=== PATIENT | female | born 1975 | race Caucasian/White ===

== ENCOUNTER 2024-11-15 07:56 | Outpatient (CLI) | payer OTHER, SELFPAY ==
--- NOTE | ~2024-11-15 | MR_ITS ---
EXAMINATION: MR knee RT wo con DATE: 11/15/2024 08:33 INDICATION: Patellofemoral arthritis TECHNIQUE: Magnetic resonance imaging (MRI) of the right knee was performed without intravenous contr ast. Sequences included coronal PD-weighted FSE, coronal PD-weighted FS FSE, sagittal T2-weighted FS E, sagittal PD-weighted FS FSE and axial PD weighted fat saturated FSE. COMPARISON: None. FINDINGS: Medial compartment: Medial meniscus is normal. Articular cartilage is normal. Lateral compartment: Lateral meniscus is normal. Articular cartilage is normal. Patellofemoral compartment: There is deep chondral fissuring with underlying subarticular edema-like and cystlike changes at the lateral patellar facet. Cartilage at the medial patellar facet and at the trochlea appears normal. Ligaments and tendons: Anterior and posterior cruciate ligaments are normal. The medial collateral ligament and fibular nathaniel ateral ligament complex are normal. The extensor mechanism is normal. The visualized medial and later al hamstring tendons as well as the iliotibial band are normal. Fluid: Physiologic amount of fluid in the joint space. No loose osteochondral bodies identified. Osseous/other: Marrow signal is normal with no fracture or pathologic marrow replacing process. No fracture or patho logic marrow replacing process. IMPRESSION: 1. 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 Otherwise unremarkable right knee MRI. Reviewed, dictated and finalized at location A. [employer]ING PL[employer]NER IMPRESSION: 1. 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 Otherwise unrema rkable right knee MRI.
--- NOTE | ~2024-11-15 | MR_ITS ---
EXAMINATION: MR knee LT wo con DATE: 11/15/2024 08:47 INDICATION: Patellofemoral arthritis of the left knee TECHNIQUE: Magnetic resonance imaging (MRI) of the left knee was performed without intravenous contra st. Sequences included coronal PD-weighted FSE, coronal PD-weighted FS FSE, sagittal T2-weighted FSE , sagittal PD-weighted FS FSE and axial PD weighted fat saturated FSE. COMPARISON: None. FINDINGS: Medial compartment: Medial meniscus is normal. Articular cartilage is normal. Lateral compartment: Lateral meniscus is normal. Articular cartilage is normal. Patellofemoral compartment: Small region of deep chondral fissuring with underlying subarticular edema-like signal change at the medial aspect of the lateral patellar facet. Cartilage at the medial patellar facet and trochlea is n ormal. Ligaments and tendons: Anterior and posterior cruciate ligaments are normal. The medial collateral ligament and fibular nathaniel ateral ligament complex are normal. The extensor mechanism is normal. The visualized medial and later al hamstring tendons as well as the iliotibial band are normal. Fluid: Physiologic amount of fluid in the joint space. No loose osteochondral bodies identified. Osseous/other: Aside from at the patella there is normal marrow signal throughout. No fracture or pathologic marrow replacing process. IMPRESSION: 1. Small region of high-grade chondromalacia at the medial side of the lateral patellar facet. Otherw ise unremarkable left knee MRI. Reviewed, dictated and finalized at location A. SERVICE SERVER IMPRESSION: 1. Small region of high-grade chondromalacia at the medial side of the lateral patellar facet. Otherwise unremarkable left knee MRI.
== END 2024-11-15 07:57 | disposition home or self-care (01) ==
LOC: MICIMG 07:58
PROVIDERS: PCP Physician Assistant
DX: M17.0 Bilateral primary osteoarthritis of knee (principal)
CPT/HCPCS: 73721